=== PATIENT | female | born 1975 | race Caucasian/White ===

== ENCOUNTER 2017-05-13 14:05 | Emergency (ER) | payer OTHER ==
[2017-05-13 14:21] VITALS: BP 132/75; PULSE 108; TEMP 97.7; BMI 29.2
--- NOTE | 2017-05-13 15:22 | PDOC ---
History of Present Illness - General Chief Complaint: Cold Symptoms Stated Complaint: SORE THROAT Time Seen by Provider: 05/13/17 14:33 History Source: Patient Exam Limitations: No Limitations - History of Present Illness Initial Comments: 05/13/17 15:39 Patient is a [42-year-old female, no significant medical history currently on no medication presents with sore throat and left ear pain. No nausea vomiting or diarrhea, no chest pain or shortness of breath.] Past Medical History: [Denies]. Allergies: No known allergies Medications: [None] Family History: Non-contributory Social History: Denies smoking, alcohol use, or IVDU Review of Systems GENERAL/CONSTITUTIONAL: [No fever or chills. No weakness. No weight change.] HEAD, EYES, EARS, NOSE AND THROAT: [No change in vision. Throat pain and right ear pain. No sore throat. ] CARDIOVASCULAR: [No chest pain or shortness of breath.] RESPIRATORY: [No cough, wheezing, or hemoptysis.] GASTROINTESTINAL: [No nausea, vomiting, diarrhea or constipation. No rectal bleeding.] GENITOURINARY: [No dysuria, frequency, or change in urination.] MUSCULOSKELETAL: [No joint or muscle swelling or pain. No neck or back pain.] SKIN AND BREASTS: [No rash or easy bruising.] NEUROLOGIC: [No headache, vertigo, loss of consciousness, or loss of sensation.] PSYCHIATRIC: [No depression or anxiety.] ENDOCRINE: [No increased thirst. No abnormal weight change.] HEMATOLOGIC/LYMPHATIC: [No anemia, easy bleeding, or history of blood clots.] ALLERGIC/IMMUNOLOGIC: [No hives or skin allergy. No latex allergy.] Physical Exam: GENERAL: [The patient is awake, alert, and fully oriented, in no acute distress. ] EYES: [Pupils equal, round and reactive to light, extraocular movements intact, sclera anicteric, conjunctiva clear.] ENT: [Ears normal, nares patent, oropharynx erythematous with exudates. Moist mucous membranes. No uvula deviation] NECK: [Normal range of motion, supple without precervical lymphadenopathy, no JVD, or masses.] LUNGS: [Breath sounds equal, clear to auscultation bilaterally. No wheezes, and no crackles.] HEART: [Regular rate and rhythm, normal S1 and S2 without murmur, rub or gallop. ] ABDOMEN: [Soft, nontender, normoactive bowel sounds. No guarding, no rebound. No masses. No bruising or abrasions] MUSCULOSKELETAL: [Normal range of motion, no edema. No clubbing or cyanosis. No cords, erythema, or tenderness. No CVA Tenderness with fist.] NEUROLOGICAL: [Cranial nerves II through XII grossly intact. Normal speech, normal gait.] SKIN: [Warm, Dry, normal turgor, no rashes or lesions noted.] 05/13/17 15:58 Past History - Past Medical History Allergies/Adverse Reactions: Allergies Allergy/AdvReac Type Severity Reaction Status Date / Time No Known Allergies Allergy Verified 05/13/17 14:17 Home Medications: Ambulatory Orders Azithromycin [Zithromax 250mg Tablets -] 250 mg PO UTDICT #6 tab 05/13/17 COPD: No Other medical history: DENIES. - Suicide/Smoking/Psychosocial Hx Smoking Status: No Smoking History: Former smoker Have you smoked in the past 12 months: No Number of Cigarettes Smoked Daily: 0 Information on smoking cessation initiated: No Hx Alcohol Use: No Drug/Substance Use Hx: No Substance Use Type: None *Physical Exam - Vital Signs Last Vital Signs Temp Pulse Resp BP Pulse Ox 97.7 F 108 H 19 132/75 99 05/13/17 14:18 05/13/17 14:18 05/13/17 14:18 05/13/17 14:18 05/13/17 14:18 Medical Decision Making - Medical Decision Making 05/13/17 15:58 A/P: Patient with precervical lymphadenopathy, exudate erythema and edema to tonsils. Will DC patient on azithromycin, warm saltwater gargles, Motrin for pain, follow-up with ENT if unable to eat or drink or swallow chest pain or shortness of breath return to ER. 05/13/17 15:58 *DC/Admit/Observation/Transfer Diagnosis at time of Disposition: Pharyngitis Qualifiers: Pharyngitis/tonsillitis etiology: unspecified etiology Qualified Code(s): J02.9 - Acute pharyngitis, unspecified - Discharge Dispostion Disposition: HOME Condition at time of disposition: Stable Admit: No - Prescriptions Prescriptions: Azithromycin [Zithromax 250mg Tablets -] 250 mg PO UTDICT #6 tab - Referrals Referrals: Clay Slater MD [Staff Physician] - - Patient Instructions Additional Instructions: 1. Increase fluid. 2. Pedialyte or Gatorade. 3. Please change toothbrush within 3 days of starting antibiotics. 4. Warm saltwater gargles. 5. Please follow up with PMD in 3 days if symptoms not resolving. 6. Please return to the ER unable to drink or eat, increased fever or other concerns - Post Discharge Activity
== END 2017-05-13 15:23 | disposition home or self-care (01) ==
LOC: JERFT 14:05
DX: J02.9 Acute pharyngitis, unspecified (principal); Z87.891 Personal history of nicotine dependence
CPT/HCPCS: 99281-25

== ENCOUNTER 2017-12-02 19:46 | Emergency (ER) | payer OTHER ==
[2017-12-02 20:19] VITALS: BP 136/86; PULSE 92; TEMP 97.9; BMI 60.4
[2017-12-02] MEDS ORDERED: KETOROLAC TROMETHAMINE 60 MG/2 ML VIAL ONE (20:27)
--- NOTE | 2017-12-02 20:30 | PDOC ---
History of Present Illness - General Chief Complaint: Pain Stated Complaint: LT FOOT PAIN Time Seen by Provider: 12/02/17 20:23 History Source: Patient - History of Present Illness Occurred: reports: other Severity: Yes: severe Lower Extremity Pain Location: left: foot Past History - Past Medical History Allergies/Adverse Reactions: Allergies Allergy/AdvReac Type Severity Reaction Status Date / Time No Known Allergies Allergy Verified 05/13/17 14:17 Home Medications: Ambulatory Orders Acetaminophen [Tylenol -] 2 tab PO Q6H #30 tablet 12/02/17 Tramadol HCl 50 mg PO Q6H #12 tablet MDD 200 mg 12/02/17 COPD: No - Suicide/Smoking/Psychosocial Hx Smoking Status: No Smoking History: Never smoked Have you smoked in the past 12 months: No Number of Cigarettes Smoked Daily: 0 Information on smoking cessation initiated: No Hx Alcohol Use: No Drug/Substance Use Hx: No Substance Use Type: None Review of Systems - Review of Systems Constitutional: No: Chills, Fever Musculoskeletal: Yes: Joint Pain. No: Joint Swelling *Physical Exam - Vital Signs Last Vital Signs Temp Pulse Resp BP Pulse Ox 97.9 F 92 H 18 136/86 99 12/02/17 20:13 12/02/17 20:13 12/02/17 20:13 12/02/17 20:13 12/02/17 20:13 - Physical Exam General Appearance: Yes: Appropriately Dressed, Apparent Distress HEENT: positive: Normal Voice Neck: positive: Supple Respiratory/Chest: negative: Respiratory Distress Extremity: negative: Tender (ttp to lateral aspect of L foot/heel, no swelling, limping ) Integumentary: positive: Dry, Warm Neurologic: positive: Fully Oriented, Alert, Normal Mood/Affect Medical Decision Making - Medical Decision Making 12/02/17 20:26 42-year-old female here with left foot pain. Patient reports fracturing left foot over 10 years ago, no surgery for same, completed physical therapy with resolution of pain but states for the past 2 years she's had intermittent pain to lateral aspect of left foot near site of prior fracture. Has upcoming appointment with her orthopedic doctor, but here for pain control. Taking over- the-counter medication with no relief per patient. Patient well-appearing and stable in ED with tendernes to lateral aspect of L foot, near heel. No swelling or skin changes. Pain meds given in ED. DC with pain control and orthopedic follow-up for further evaluation. Given clutches *DC/Admit/Observation/Transfer Diagnosis at time of Disposition: Foot pain, left - Discharge Dispostion Condition at time of disposition: Improved - Prescriptions Prescriptions: Acetaminophen [Tylenol -] 2 tab PO Q6H #30 tablet Tramadol HCl 50 mg PO Q6H #12 tablet MDD 200 mg - Referrals - Patient Instructions Additional Instructions: Take medication as prescribed and follow up her orthopedic as already scheduled Use crutches for assistance with weight bearing - Post Discharge Activity
[2017-12-02] MEDS: KETOROLAC TROMETHAMINE 60 MG/2 ML VIAL IM ONE ×2 (20:31→20:38)
[2017-12-02] MEDS ORDERED: KETOROLAC TROMETHAMINE 60 MG/2 ML VIAL IM ONE (20:34)
== END 2017-12-02 20:46 | disposition home or self-care (01) ==
LOC: JERFT 19:46
PROC: 3E0233Z Introduction of Anti-inflammatory into Muscle, Percutaneous Approach (ICD-10-PCS; principal; 2017-12-02)
DX: M79.672 Pain in left foot (principal); Z87.81 Personal history of (healed) traumatic fracture
CPT/HCPCS: 96372; 99281-25